=== PATIENT | male | born 1990 | race Hispanic/Latino ===

== ENCOUNTER 2020-03-26 04:07 | Emergency (ER) | payer OTHER ==
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
[2020-03-26 05:20] VITALS: BP 164/101; TEMP 98.5; O2SAT 99
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
== END 2020-03-26 05:13 | disposition home or self-care (01) ==
LOC: ER 04:07
DX: Z77.098 Contact with and (suspected) exposure to other hazardous, chiefly nonmedicinal, chemicals (principal)
CPT/HCPCS: 99283

== ENCOUNTER 2020-09-25 00:27 | Observation (INO) | payer OTHER ==
[2020-09-25 01:36] LABS: Absolute Lymphocytes (CBC) 1.5 K/uL (0.7-4.9); Basophils % 0.4 % (0-1.3); Lymphocytes % 19.5 % (15.3-44.8); MPV 9.1 fL (7.6-11.3)
[2020-09-25 01:47] LABS: BUN Blood Urea Nitrogen 9 mg/dL (7-18); Bicarbonate 24 mmol/L (21-32); Glucose Level 97 mg/dL (74-106); NT PRO-BNP 7 pg/mL (<125); Potassium 3.7 mmol/L (3.5-5.1); Sodium Level 141 mmol/L (136-145); Troponin (Emerg Dept Use Only) 0.09 ng/mL (0.0-0.045)
[2020-09-25] MEDS ORDERED: ASPIRIN 81 MG CHEWABLE TABLET ONE (04:30)
--- NOTE | 2020-09-25 04:57 | EDPHYS ---
Physician Documentation [facility] Name: Mikey Biswas Age: 30 yrs Sex: Male : 1990 Arrival Date: 09/25/2020 Time: 00:51 Bed 16 Private MD: ED Physician Jeovany Paz HPI: 09/25 00:54 This 30 yrs old Male presents to ER via Unassigned with complaints of rn dizziness, sob. 00:54 The patient has shortness of breath at rest. Onset: The symptoms/episode began/occurred rn just prior to arrival. Duration: The symptoms are continuous, but are markedly better than the original presentation. The patient's shortness of breath is aggravated by nothing, is alleviated by application of supplemental oxygen. Associated signs and symptoms: Pertinent positives: dizziness, tingling of hands and face, Pertinent negatives: non-productive cough, productive cough, fever, hemoptysis, loss of consciousness. Severity of symptoms: At their worst the symptoms were mild in the emergency department the symptoms have resolved. The patient has not experienced similar symptoms in the past. Reports at work, was feeling a little stressed, began to feel lightheaded, sob, tingling of hands and face, mild chest pressure, resolved after given supplemental oxygen. No famhx of early cardiac problems. Has never happened to him before. Currently asymptomatic. Went to work feeling fine.. Historical: - Allergies: 00:57 No Known Allergies; jb4 - Home Meds: 00:57 None [Active]; jb4 - PMHx: 00:57 None; jb4 - PSHx: 00:57 None; jb4 - Immunization history:: Adult Immunizations up to date. - Social history:: Smoking status: Patient denies any tobacco usage or history of. Patient uses alcohol, occasionally. Patient/guardian denies using street drugs. - Family history:: not pertinent. - Hospitalizations: : No recent hospitalization is reported. ROS: 00:54 Constitutional: Negative for fever, chills, and weight loss, Eyes: Negative for injury, rn pain, redness, and discharge, Neck: Negative for injury, pain, and swelling, Cardiovascular: Negative for edema Respiratory: Negative for cough, wheezing, and pleuritic chest pain, Abdomen/GI: Negative for abdominal pain, nausea, vomiting, diarrhea, and constipation, Back: Negative for injury and pain, MS/Extremity: Negative for injury and deformity, Skin: Negative for injury, rash, and discoloration, Neuro: Negative for headache, weakness, and seizure. Exam: 00:54 Constitutional: This is a well developed, well nourished patient who is awake, alert, rn and in no acute distress. Head/Face: Normocephalic, atraumatic. Eyes: Pupils equal round and reactive to light, extra-ocular motions intact. Lids and lashes normal. Conjunctiva and sclera are non-icteric and not injected. Cornea within normal limits. Periorbital areas with no swelling, redness, or edema. Cardiovascular: Regular rate and rhythm. No pulse deficits. Respiratory: No increased work of breathing, no retractions or nasal flaring. Clear bilateral breath sounds. Abdomen/GI: Soft, non-tender Skin: Warm, dry with normal turgor. Normal color with no rashes, no lesions, and no evidence of cellulitis. MS/ Extremity: Pulses equal, no cyanosis. Neurovascular intact. Full, normal range of motion. Equal circumference. Neuro: Awake and alert, GCS 15, oriented to person, place, time, and situation. Cranial nerves II-XII grossly intact. Motor strength 5/5 in all extremities. Sensory grossly intact. Cerebellar exam normal. Vital Signs: 00:54 BP 133 / 74; Pulse 97; Resp 18; Temp 98.8(O); Pulse Ox 96% on R/A; Weight 154.22 kg jb4 (R); Height 5 ft. 8 in. (172.72 cm) (R); Pain 0/10; 03:00 BP 161 / 99; Pulse 84; Resp 16; Pulse Ox 100% on R/A; jm8 05:14 BP 126 / 83; Pulse 89; Resp 16; Pulse Ox 99% ; jm8 00:54 Body Mass Index 51.70 (154.22 kg, 172.72 cm) jb4 MDM: 00:51 Patient medically screened. rn 04:54 Differential diagnosis: Anxiety Reaction Myocardial Infarction Pulmonary Embolism. rn Differential diagnosis: Unstable Angina. Data reviewed: vital signs, nurses notes, lab test result(s), EKG, radiologic studies, CT scan, and as a result, I will admit patient. Counseling: I had a detailed discussion with the patient and/or guardian regarding: the historical points, exam findings, and any diagnostic results supporting the discharge/admit diagnosis, lab results, radiology results, the need for further work-up and treatment in the hospital. Response to treatment: the patient's symptoms have markedly improved after treatment, the patient is now symptom free, and as a result, I will admit patient. Admission orders: after a detailed discussion of the patient's condition and case, the admit orders are written by me. ED course: Pt improved, back to baseline, + elevated troponin and rightward axis ECG, CT PE neg, states intermittent episodes of chest pain in last few weeks, will admit given elevated troponin, chest pain, and near syncope with dyspnea today while at rest.. 09/25 00:51 Order name: Basic Metabolic Panel 09/25 00:51 Order name: CBC with Diff 09/25 00:51 Order name: NT PRO-BNP 09/25 00:51 Order name: Troponin (emerg Dept Use Only) 09/25 00:52 Order name: Basic Metabolic Panel; Complete Time: 03:00 [facility] 09/25 00:52 Order name: CBC with Automated Diff; Complete Time: 03:00 [facility] 09/25 00:52 Order name: NT PRO-BNP; Complete Time: 03:00 [facility] 09/25 00:52 Order name: Troponin (Emerg Dept Use Only); Complete Time: 03:00 [facility] 09/25 07:57 Order name: Troponin I [facility] 09/25 07:57 Order name: Lipid Profile [facility] 09/25 07:57 Order name: T4 Free [facility] 09/25 07:57 Order name: Thyroid Stimulating Hormone [facility] 09/25 08:42 Order name: Hemoglobin A1c [facility] 09/25 12:34 Order name: Urinalysis [facility] 09/25 00:51 Order name: XRAY Chest (1 view) rn 09/25 00:51 Order name: EKG; Complete Time: 00:52 rn 09/25 00:51 Order name: Cardiac monitoring; Complete Time: 01:19 rn 09/25 00:51 Order name: EKG - Nurse/Tech; Complete Time: 01:19 rn 09/25 00:51 Order name: IV Saline Lock; Complete Time: : rn 09/25 00:51 Order name: Labs collected and sent; Complete Time: : rn 09/25 00:51 Order name: O2 Per Protocol; Complete Time: : rn 09/25 00:51 Order name: O2 Sat Monitoring; Complete Time: : rn 09/25 03:01 Order name: CT Chest For PE Angio rn 09/25 04:50 Order name: CONS Physician Consult EDAL 09/25 12:38 Order name: Urine Drug Screen [facility]AL 09/25 12:47 Order name: Troponin I EDAL Administered Medications: 04:27 Drug: Aspirin Chewable Tablet 324 mg Route: PO; jm8 05:21 Follow up: Response: No adverse reaction jm8 Disposition: 09/25/20 04:57 Hospitalization ordered by Kelli Aguilar for Observation. Preliminary diagnosis are Chest pain, unspecified, Elevated troponin, Near syncope. - Bed requested for [facility] ER HOLD. - Status is Observation. ap3 - Condition is Stable. - Problem is new. - Symptoms have improved. Signatures: Dispatcher [employer] EDAL Jeovany Paz MD MD rn Calderon, Audri RN RN aa5 Ziggy Lehman RN RN jb4 Regina Kowalski RN RN ap3 Eder Huynh RN RN jm8 Corrections: (The following items were deleted from the chart) 07:51 04:57 Hospitalization Ordered by Kelli Aguilar MD for Observation. Preliminary aa5 diagnosis is Chest pain, unspecified; Elevated troponin; Near syncope. Bed requested for Telemetry/MedSurg (observation). Status is Observation. Condition is Stable. Problem is new. Symptoms have improved. rn 13:54 07:51 09/25/2020 04:57 Hospitalization Ordered by Kelli Aguilar MD for Observation. ap3 Preliminary diagnosis is Chest pain, unspecified; Elevated troponin; Near syncope. Bed requested for [facility] ER HOLD. Status is Observation. Condition is Stable. Problem is new. Symptoms have improved. aa5
--- NOTE | 2020-09-25 04:57 | ER ---
Nurse's Notes [facility] Name: Mikey Biswas Age: 30 yrs Sex: Male : 1990 Arrival Date: 09/25/2020 Time: 00:51 Bed 16 Private MD: Diagnosis: Chest pain, unspecified;Elevated troponin;Near syncope Presentation: 09/25 00:54 Chief complaint: EMS states: He was sitting at his desk at work and suddenly started to jb4 feel dizzy and began having chest pressure. He was initially tachycardic when we arrive with a B/p of 175/101. His BGL was 89. We initiate a 20g in the left hand, gave 324 of ASA, and put him on 2L NC. Coronavirus screen: Client denies travel out of the [place] in the last 14 days. At this time, the client does not indicate any symptoms associated with coronavirus-19. Ebola Screen: No symptoms or risks identified at this time. Initial Sepsis Screen: Does the patient meet any 2 criteria? HR > 90 bpm. Yes Does the patient have a suspected source of infection? No. Patient's initial sepsis screen is negative. Risk Assessment: Do you want to hurt yourself or someone else? Patient reports no desire to harm self or others. Onset of symptoms was September 25, 2020. Transition of care: patient was not received from another setting of care. 00:54 Method Of Arrival: EMS: [facility] jb4 00:54 Acuity: AARTI 3 jb4 Triage Assessment: 00:57 General: Appears in no apparent distress. comfortable, Behavior is calm, cooperative, jb4 appropriate for age. Pain: Denies pain. Historical: - Allergies: 00:57 No Known Allergies; jb4 - Home Meds: 00:57 None [Active]; jb4 - PMHx: 00:57 None; jb4 - PSHx: 00:57 None; jb4 - Immunization history:: Adult Immunizations up to date. - Social history:: Smoking status: Patient denies any tobacco usage or history of. Patient uses alcohol, occasionally. Patient/guardian denies using street drugs. - Family history:: not pertinent. - Hospitalizations: : No recent hospitalization is reported. Screenin:22 Abuse screen: Denies threats or abuse. Denies injuries from another. Nutritional jm8 screening: No deficits noted. Tuberculosis screening: No symptoms or risk factors identified. Fall Risk None identified. Assessment: 01:20 General: Appears in no apparent distress. comfortable, Behavior is calm, cooperative, jm8 appropriate for age. 01:21 Pain: Denies pain. Neuro: No deficits noted. Cardiovascular: Reports chest pain, jm8 lightheadedness, palpitations. Respiratory: No deficits noted. Respiratory: Airway is patent Trachea midline Respiratory effort is even, unlabored. GI: No deficits noted. : No deficits noted. EENT: No deficits noted. Derm: No deficits noted. Musculoskeletal: No deficits noted. 03:00 Reassessment: Patient appears in no apparent distress at this time. Patient and/or jm8 family updated on plan of care and expected duration. Pain level reassessed. Patient is alert, oriented x 3, equal unlabored respirations, skin warm/dry/pink. 05:00 Reassessment: Patient appears in no apparent distress at this time. No changes from jm8 previously documented assessment. Patient and/or family updated on plan of care and expected duration. Pain level reassessed. Patient is alert, oriented x 3, equal unlabored respirations, skin warm/dry/pink. Vital Signs: 00:54 BP 133 / 74; Pulse 97; Resp 18; Temp 98.8(O); Pulse Ox 96% on R/A; Weight 154.22 kg jb4 (R); Height 5 ft. 8 in. (172.72 cm) (R); Pain 0/10; 03:00 BP 161 / 99; Pulse 84; Resp 16; Pulse Ox 100% on R/A; jm8 05:14 BP 126 / 83; Pulse 89; Resp 16; Pulse Ox 99% ; jm8 00:54 Body Mass Index 51.70 (154.22 kg, 172.72 cm) jb4 ED Course: 00:51 Patient arrived in ED. rn 00:51 Jeovany Paz MD is Attending Physician. rn 00:56 Triage completed. jb4 00:57 Arm band placed on right wrist. jb4 01:22 No provider procedures requiring assistance completed. Maintain EMS IV. Dressing jm8 intact. Good blood return noted. Site clean \T\ dry. Gauge \T\ site: 20 g left hand. 01:23 Patient has correct armband on for positive identification. Bed in low position. Call jm8 light in reach. Side rails up X2. Adult w/ patient. 02:08 XRAY Chest (1 view) In Process Unspecified. EDMS 03:56 CT Chest For PE Angio In Process Unspecified. EDMS 04:56 Kelli Aguilar MD is Hospitalizing Provider. rn 07:29 Zena Sheikh, RN is Primary Nurse. ld1 13:52 IV discontinued, intact. ap3 Administered Medications: 04:27 Drug: Aspirin Chewable Tablet 324 mg Route: PO; 8 05:21 Follow up: Response: No adverse reaction jm8 Outcome: 04:57 Decision to Hospitalize by Provider. rn 13:52 Discharged to home ap3 13:52 Condition: stable 13:52 Discharge instructions given to patient, family. 13:54 Patient left the ED. ap3 Signatures: Dispatcher [employer] EDMS Jeovany Paz MD MD rn Bryson, James RN RN Regina Lopez RN RN ap3 Zena Sheikh, RN RN ld1 Eder Huynh, RN RN jm8 Corrections: (The following items were deleted from the chart) 05:19 05:18 BP 161 / 99; Pulse 84bpm; Resp 16bpm; Pulse Ox 100% RA; jm8 jm8
--- NOTE | 2020-09-25 05:03 | P.HP ---
Certification for Inpatient Patient admitted to: Observation With expected LOS: <2 Midnights Patient will require the following post-hospital care: None Practitioner: I am a practitioner with admitting privileges, knowledge of patient current condition, hospital course, and medical plan of care. Services: Services provided to patient in accordance with Admission requirements found in Title 42 Section 412.3 of the Code of Federal Regulations Patient History Date of Service: 09/25/20 Primary Care Provider: none Reason for admission: chest pain History of Present Illness: Mr. Biswas is a 30 yo male here today with an episode of intermittent sternal chest pressure while he was sitting at his desk at work. Reports dizziness, li ghtheadedness, chills, SOB, palpitations. He says he felt like he struggled to talk and felt confused. He felt numbness in his face and in his left fingers. He felt like he was going to pass out. The chest pressure started 30 minutes after his other symptoms. In the past he has had short sharp pains in his chest, but this is the first time he has felt like this. Symptoms usually relieved with hunching over or taking deep breaths. His dad has a history of [place]. He drinks a 6pack of beer 2-3x a week. Troponin 0.09. RAD on EKG. CTPE wnl. - Past Medical/Surgical History Has patient received pneumonia vaccine in the past: No Diabetic: No Past Medical History: Patient denies medical history Past Surgical History: Patient denies surgical history - Family History Father -: Heart disease Mother -: Diabetes - Social History Smoking Status: Never smoker Alcohol use: Yes CD- Drugs: No Caffeine use: No Place of Residence: Home Review of Systems General: Chills, Sweats, Malaise, As per HPI Eyes: Unremarkable ENT: Unremarkable Respiratory: Shortness of Breath, As per HPI Cardiovascular: Chest Pain, Palpitations, Light Headedness, As per HPI Gastrointestinal: Nausea, As per HPI Genitourinary: Unremarkable Musculoskeletal: Unremarkable Integumentary: Unremarkable Neurological: Numbness, Confusion, As per HPI Lymphatics: Unremarkable Physical Examination - Physical Exam General: Alert, In no apparent distress, Oriented x3, Cooperative HEENT: Atraumatic, Normocephalic, PERRLA, Mucous membr. moist/pink, EOMI, Sclerae nonicteric Neck: Supple, 2+ carotid pulse no bruit, JVD not distended, No Thyromegaly, No LAD Respiratory: Clear to auscultation bilaterally, Normal air movement Cardiovascular: No edema, Normal pulses, Regular rate/rhythm, Normal S1 S2, No gallops, No rubs, No murmurs Capillary refill: <2 Seconds Gastrointestinal: Normal bowel sounds, Soft and benign, Non-distended, No ascites, No tenderness, No masses, No rebound, No guarding Musculoskeletal: No clubbing, No swelling, No contractures, No erythema, No tenderness, No warmth Integumentary: No rashes, No breakdown, No significant lesion, No tenderness/swelling, No erythema, No warmth, No cyanosis Neurological: Normal gait, Normal speech, Normal strength at 5/5 x4 extr, Normal tone, Sensation intact, Cranial nerves 3-12 intact, Normal affect Lymphatics: No axilla or inguinal lymphadenopathy - Studies Laboratory Data (last 24 hrs) 09/25/20 01:11: WBC 7.60, Hgb 14.1, Hct 42.0, Plt Count 235 09/25/20 01:11: Sodium 141, Potassium 3.7, BUN 9, Creatinine 0.77, Glucose 97 Assessment and Plan - Problems (Diagnosis) (1) Hypertension Current Visit: Yes Status: Acute Qualifiers: Hypertension type: essential hypertension Qualified Code(s): I10 - Essential (primary) hypertension (2) Elevated troponin Current Visit: Yes Status: Acute (3) Abnormal EKG Current Visit: Yes Status: Acute (4) Chest pain Current Visit: Yes Status: Acute Qualifiers: Chest pain type: unspecified Qualified Code(s): R07.9 - Chest pain, unspecified - Plan cardiology consulted trend troponins and EKG ASA, BB, statin continue to monitor BP lipid panel, TSH/T4, A1c pending PRN morphine and NTG, DVT ppx UDS pending Dietitian consulted Discharge Plan: Home Plan to discharge in: 24 Hours - Advance Directives Does patient have a Living Will: No Does patient have a Durable POA for Healthcare: No - Code Status/Comfort Care Code Status Assessed: Yes (full code ) Critical Care: No Time Spent Managing Pts Care (In Minutes): 70
[2020-09-25] MEDS ORDERED: ACETAMINOPHEN 500 MG TAB PO PRN (06:02)
[2020-09-25] MEDS ORDERED: METOPROLOL TAR 25 MG TAB PO SCH (06:02)
[2020-09-25] MEDS ORDERED: ONDANSETRON 4 MG/2 ML VIAL IV PRN (06:02)
[2020-09-25] MEDS ORDERED: MORPHINE 2 MG/ML SYR IV PRN (06:02)
[2020-09-25] MEDS ORDERED: NITROGLYCERIN 0.4 MG/TAB SL PRN (06:02)
[2020-09-25] MEDS ORDERED: METOPROLOL TAR 25 MG TAB ONE (06:28)
[2020-09-25 06:36] VITALS: BMI 51.6
--- NOTE | 2020-09-25 07:19 | RAD REPORT ---
EXAM DESCRIPTION: Harpal Single View09/25/2020 2:08 am CLINICAL HISTORY: Shortness of breath COMPARISON: none FINDINGS: The lungs appear clear of acute infiltrate. The heart is borderline enlarged IMPRESSION: No acute abnormalities displayed
[2020-09-25 07:57] LABS: Thyroid Stimulating Hormone 2.1 uIU/mL (0.360-3.740); Troponin I 0.09 ng/mL (0.0-0.045)
[2020-09-25] MEDS ORDERED: ASPIRIN EC 81 MG TAB PO SCH (09:00)
[2020-09-25 09:14] VITALS: TEMP 98.2
[2020-09-25] MEDS ORDERED: ASPIRIN EC 81 MG TAB PO ONE (09:36)
[2020-09-25] MEDS ORDERED: ENOXAPARIN 40 MG/0.4 ML SQ ONE (09:36)
[2020-09-25 10:33] VITALS: O2SAT 98
--- NOTE | 2020-09-25 11:16 | RAD REPORT ---
EXAM DESCRIPTION: CT - Chest For Pe Angio - 09/25/2020 6:55 am CLINICAL HISTORY: The patient is 30 years old and is Male; Chest pain;Dyspnea TECHNIQUE: Axial computed tomographic angiography images of the chest with intravenous contrast. S agittal and coronal reformatted images were created and reviewed. This CT exam was performed using one or more of the following dose reduction techniques: automated exposure control, adjustment of t he mA and/or kV according to patient size, and/or use of iterative reconstruction technique. MIP re constructed images were created and reviewed. COMPARISON: No relevant prior studies available. FINDINGS: Limitations: Contrast bolus suboptimal for detection of pulmonary embolism. Pulmonary arteries: See above. Aorta: No acute findings. No thoracic aortic aneurysm. Lungs: Unremarkable. No mass. No consolidation. Pleural space: Unremarkable. No significant effusion. No pneumothorax. Heart: Unremarkable. No cardiomegaly. No significant pericardial effusion. No evidence of RV dysfunction. Bones/joints: No acute fracture. No dislocation. Soft tissues: Unremarkable. Lymph nodes: Unremarkable. No enlarged lymph nodes. Liver: There is diffuse fatty infiltration of the liver. IMPRESSION: No evidence of pulmonary embolism. No acute findings in the visualized arteries of the c hest. Electronically signed by: Chuy Huizar MD 09/25/2020 4:40 AM CDT Due to temporary technical issues with the PACS/Fluency reporting system, reports are being signed by the in house radiologist without review as a courtesy to ensure prompt reporting. The interpreting r adiologist is fully responsible for the content of the report.
[2020-09-25 12:32] LABS: Urine Appearance CLEAR (Clear); Urine Bilirubin NEGATIVE (Negative); Urine Blood NEGATIVE (Negative); Urine Color YELLOW (Yellow); Urine Glucose NEGATIVE (Negative); Urine Protein NEGATIVE (Negative); Urine Specific Gravity >=1.030 (1.005-1.030); Urine Urobilinogen 0.2 mg/dL (0.2-1.0); Urine pH 5.5 (5.0-7.0)
[2020-09-25 12:34] LABS: Urine Microscopic Reflex NO UMIC
[2020-09-25 12:37] LABS: Barbiturates NEGATIVE (NEGATIVE); Benzodiazepines NEGATIVE (NEGATIVE); Cocaine NEGATIVE (NEGATIVE); METHAMPHETAM NEGATIVE (NEGATIVE); Methadone NEGATIVE (NEGATIVE); Opiates NEGATIVE (NEGATIVE); Phencyclidine NEGATIVE (NEGATIVE); THC Cannibis NEGATIVE (NEGATIVE)
[2020-09-25 12:42] VITALS: BP 146/92
[2020-09-25] MEDS ORDERED: ENOXAPARIN 40 MG/0.4 ML SQ SCH (21:00)
[2020-09-25] MEDS ORDERED: ATORVASTATIN 20 MG TAB PO SCH (21:00)
--- NOTE | 2020-09-26 07:21 | EKG ---
Test Date: 2020-09-25 Test Time: 01:13:34 Systems Programmer Analyst: GLORIA MEASUREMENT RESULTS: Intervals: Rate: 92 GA: 138 QRSD: 88 QT: 334 QTc: 413 [place]: P: 31 GA: 138 QRS: 98 T: -10 INTERPRETIVE STATEMENTS: Normal sinus rhythm Rightward axis Cannot rule out Inferior infarct, age undetermined Abnormal ECG No previous ECG available for comparison Electronically Signed On 09-26-20 07:18:17 CDT by Milan Pablo
--- NOTE | 2020-09-26 07:21 | EKG ---
Test Date: 2020-09-25 Test Time: 01:14:36 Electric Transfer Operator: GLORIA MEASUREMENT RESULTS: Intervals: Rate: 89 NE: 134 QRSD: 82 QT: 332 QTc: 403 [place]: P: 32 NE: 134 QRS: 98 T: -7 INTERPRETIVE STATEMENTS: Normal sinus rhythm Rightward axis Abnormal QRS-T angle, consider primary T wave abnormality Abnormal ECG Compared to ECG 09/25/2020 01:13:34 T-wave abnormality now present Myocardial infarct finding no longer present Electronically Signed On 09-26-20 07:18:15 CDT by Milan Pablo
--- NOTE | 2020-09-28 20:07 | CON ---
Date of Consultation: 09/25/2020 Reason For Consultation: Atypical chest pain and dizziness. History Of Present Illness: Mr. Biswas is a 30-year-old with no past medical history, does not take a ny medicine, does not have any allergies, came in with shortness of breath that developed at rest. I t was not related to exertion. He has been dizzy and has some tingling in the face as well as the coker nd. He states that this may be related to stress. He does not have any family history of heart dise ase or cardiac risk factors except for his weight. Denied PND, orthopnea, pedal edema, palpitations, syncope, fever, or chills. Past Medical History: Negative. Allergies: NONE. Medications: None. Review of Systems: Negative. Social History: Negative. Family History: Negative. Physical Examination: Vital signs: Stable. Afebrile. HEENT: Negative. Neck: Supple. No bruit. Chest: Clear to auscultation and percussion. Cardiac: Revealed a regular rhythm and rate. No murmurs, gallops, or rubs. Abdomen: Benign. Extremities: Reveal no clubbing, cyanosis, or edema. Diagnostic Data: His EKG was normal. Chest x-ray was normal. Cholesterol was 264, LDL was 204, HDL was 35. Troponin is 0.095. Impression And Plan: 1.Elevated troponin in a patient with atypical chest pain, dizziness, and shortness of breath. No c linical significance. This is not acute coronary syndrome. 2.Obesity. 3.Dyslipidemia. 4.Mild hypertension. I think Mr. Biswas should be on antihypertensive medicine, statin, baby aspirin , and go home. I will make arrangements for him to have an outpatient stress test and an echocardiog yohana in future. CARLA/CARMEN Voice ID: [id number] Report ID: [id number]
--- NOTE | 2020-09-30 20:12 | P.DS ---
Discharge Date: 09/25/20 Primary Care Provider: none Disposition: ROUTINE DISCHARGE Discharge Condition: GOOD Reason for Admission: chest pain Brief History of Present Illness: Mr. Biswas is a 30 yo male here today with an episode of intermittent sternal chest pressure while he was sitting at his desk at work. Reports dizziness, lightheadedness, chills, SOB, palpitations. He says he felt like he struggled to talk and felt confused. He felt numbness in his face and in his left fingers. He felt like he was going to pass out. The chest pressure started 30 minutes after his other symptoms. In the past he has had short sharp pains in his chest, but this is the first time he has felt like this. Symptoms usually relieved with hunching over or taking deep breaths. His dad has a history of [place]. He drinks a 6pack of beer 2-3x a week. Troponin 0.09. RAD on EKG. CTPE wnl. Hospital Course: Patient was evaluated by cardiology. Patient is stable for discharge. Patient had slightly elevated troponin and will need further testing as an outpatient. Continue with antiplatelet therapy and statin therapy and blood pressure control. Vital Signs/Physical Exam: Temp Pulse Resp BP Pulse Ox 98.2 F 74 16 146/92 H 99 09/25/20 08:00 09/25/20 12:00 09/25/20 12:00 09/25/20 12:00 09/25/20 12:00 General: Alert, In no apparent distress, Oriented x3 Laboratory Data at Discharge: WBC 7.60 K/uL (4.3-10.9) 09/25/20 01:11 Hgb 14.1 g/dL (13.6-17.9) 09/25/20 01:11 Hct 42.0 % (39.6-49.0) 09/25/20 01:11 Plt Count 235 K/uL (152-406) 09/25/20 01:11 Sodium 141 mmol/L (136-145) 09/25/20 01:11 Potassium 3.7 mmol/L (3.5-5.1) 09/25/20 01:11 BUN 9 mg/dL (7-18) 09/25/20 01:11 Creatinine 0.77 mg/dL (0.55-1.3) 09/25/20 01:11 Glucose 97 mg/dL (74-106) 09/25/20 01:11 Troponin I 0.08 ng/mL (0.0-0.045) H 09/25/20 12:15 Triglycerides 125 mg/dL (<150) 09/25/20 07:16 Cholesterol 264 mg/dL (<200) H 09/25/20 07:16 HDL Cholesterol 35 mg/dL (40-60) L 09/25/20 07:16 Cholesterol/HDL Ratio 7.54 09/25/20 07:16 Physician Discharge Instructions: OK TO DC IV AND DC HOME FOLLOW-UP WITH PCP IN 1-2 WEEKS RETURN TO THE ER IF SYMPTOMS WORSENS FOLLOW-UP WITH CARDIOLOGY IN 1-2 WEEKS FOR POSSIBLE STRESS TESTING CALL DR. REEVES AT [phone] IF ANY QUESTIONS REGARDING HOSPITAL STAY Diet: AHA Activity: Fall precautions Followup: NONE,NONE [Primary Care Provider] - Time spent managing pt's care (in minutes): 35
== END 2020-09-25 13:50 | disposition home or self-care (01) ==
LOC: ER 00:27 → ERHOLD 04:49
PROVIDERS: ADMIT Hospitalist; ATTEND Hospitalist
DX: R07.9 Chest pain, unspecified (principal); R94.31 Abnormal electrocardiogram [ECG] [EKG]; I10 Essential (primary) hypertension; R77.8 Other specified abnormalities of plasma proteins
CPT/HCPCS: 36415; 71045; 71275; 80048; 80061; 80307; 81003; 83036; 83880; 84439; 84443; 84484; 85025; 93005; 94760; 99283; G0378; J1650; Q9967

== ENCOUNTER 2023-04-26 06:51 | Inpatient (IN) | payer OTHER ==
[2023-04-26 08:06] LABS: Absolute Lymphocytes (CBC) 2.2 K/uL (0.7-4.9); Hematocrit 43.1 % (39.6-49.0); Lymphocytes % 31.1 % (15.3-44.8); MPV 7.6 fL (7.6-11.3); Platelets 262 thou/uL (152-406); RBC Red Blood Cell Count 5.08 M/uL (4.33-5.43)
--- NOTE | 2023-04-26 08:21 | RAD REPORT ---
EXAM DESCRIPTION: CT - Head Brain Wo Cont - 04/26/2023 8:05 am CLINICAL HISTORY: near syncope;Dizziness COMPARISON: No comparisons TECHNIQUE: All CT scans are performed using dose optimization technique as appropriate and may inclu de automated exposure control or mA/KV adjustment according to patient size. FINDINGS: No intracranial hemorrhage, hydrocephalus or extra-axial fluid collection.No areas of brai n edema or evidence of midline shift. Bilateral mucous retention cyst. The calvarium is intact. IMPRESSION: No acute intracranial abnormality.
--- NOTE | 2023-04-26 08:23 | RAD REPORT ---
EXAM DESCRIPTION: RAD - Chest Single View - 04/26/2023 7:52 am CLINICAL HISTORY: PALPITATIONS COMPARISON: Chest Single View dated 09/25/2020 FINDINGS: Lines: None. Lungs: Vascular congestion. No raudel alveolar edema. Pleural: No significant pleural effusions or pneumothorax. Cardiac: Borderline enlargement of the cardiac silhouette. Mediastinum: Within normal limits. Bones: No acute fractures. Other: None IMPRESSION: Pulmonary vascular congestion.
[2023-04-26 08:26] LABS: ALT/SGPT 51 U/L (16-61); AST/SGOT 25 U/L (15-37); Albumin 3.6 g/dL (3.4-5.0); Alkaline Phosphatase 103 U/L (45-117); BUN Blood Urea Nitrogen 12 mg/dL (7-18); Bicarbonate 26 mEq/L (21-32); Bilirubin Total 0.3 mg/dL (0.2-1.0); Glomerular Filtration Rate 108 ml/min (=/>90); Glucose Level 95 mg/dL (74-106); NT PRO-BNP 47 pg/mL (<125); Potassium 3.8 mEq/L (3.5-5.1); Protein, Total 7.7 g/dL (6.4-8.2); Sodium Level 137 mEq/L (136-145)
[2023-04-26 08:33] LABS: Bilirubin Direct < 0.1 mg/dL (0-0.2); Bilirubin Indirect, Calculated ND mg/dL (0.2-0.8)
[2023-04-26 08:34] LABS: Troponin High Sensitivity 126.7 pg/mL (<58.9)
--- NOTE | 2023-04-26 09:24 | RAD REPORT ---
EXAM DESCRIPTION: CT - Chest For Pe Angio - 04/26/2023 9:15 am CLINICAL HISTORY: elevated trop, near syncope COMPARISON: Chest For Pe Angio dated 09/25/2020 TECHNIQUE: Dynamically enhanced axial 3 mm thick images of the chest were obtained during administra tion of <100> mL Isovue 370 IV contrast. Coronal and oblique reconstruction images were generated and reviewed. Exam utilizes a protocol for optimal evaluation of pulmonary arterial tree. Maximum intensity projections 3D imaging was utilized All CT scans are performed using dose optimization technique as appropriate and may include automated exposure control or mA/KV adjustment according to patient size. FINDINGS: Chest Wall: No suspicious thyroid nodules or pathologic lymphadenopathy. Lungs: Low lung volumes with mosaic lung attenuation. Pleura: No significant effusions or pneumothorax. Mediastinum/hiwot: No pathologic lymphadenopathy. Pulmonary arteries/Aorta: No filling defect identified. No aortic aneurysm. Limited evaluation of the subsegmental pulmonary arteries due to motion. Heart: No significant pericardial effusion. Normal heart size. Upper abdomen: No acute abnormality.Hepatic steatosis Bones: No acute abnormality. IMPRESSION: No clinically significant pulmonary embolism. Low lung volumes with mosaic lung attenuat ion that may reflect hypoventilation versus small airways disease.
--- NOTE | 2023-04-26 09:26 | RAD REPORT ---
EXAM DESCRIPTION: CTAbdomen Pelvis W Contrast - 04/26/2023 9:16 am CLINICAL HISTORY: FLANK PAIN COMPARISON: No comparisons TECHNIQUE: CT of the abdomen and pelvis was performed. All CT scans are performed using dose optimization technique as appropriate and may include automated exposure control or mA/KV adjustment according to patient size. FINDINGS: Lower chest: No acute abnormality. Liver: Hepatic steatosis Biliary: No biliary ductal dilatation. Stomach: No significant focal abnormality. Duodenum: No significant focal abnormality. Pancreas: No significant abnormality. Spleen: No significant abnormality. Adrenal: No suspicious lesions. Kidney/ureter: No hydronephrosis. No renal calculi. Retroperitoneum: No retroperitoneal adenopathy. Vascular: No aneurysm. Bowel: No significant focal abnormality. Peritoneum: No ascites or free air. Tiny fat containing umbilical hernia. Bladder: Grossly unremarkable. Reproductive: No adnexal masses. Bones: No acute fracture. Mild disc height loss at L5-S1. Other: n/a IMPRESSION: No acute intra-abdominal or pelvic finding.
--- NOTE | 2023-04-26 09:55 | ER ---
Nurse's Notes [facility] Name: Mikey Biswas Age: 33 yrs Sex: Male : 1990 Arrival Date: 04/26/2023 Time: 06:51 Bed 14 Private MD: Diagnosis: Dizziness and giddiness;Essential (primary) hypertension;Elevated troponin Presentation: 04/26 07:29 Chief complaint: Started feeling anxious then dizzy while driving to work, both arms hb became weak and he felt like he was going to pass out. Has been under a lot of stress and has history of anxiety. VAN NEGATIVE. Coronavirus screen: At this time, the client does not indicate any symptoms associated with coronavirus-19. Ebola Screen: No symptoms or risks identified at this time. Initial Sepsis Screen: Does the patient meet any 2 criteria? No. Patient's initial sepsis screen is negative. Does the patient have a suspected source of infection? No. Patient's initial sepsis screen is negative. Risk Assessment: Do you want to hurt yourself or someone else? Patient reports no desire to harm self or others. Onset of symptoms was April 26, 2023. 07:29 Method Of Arrival: Wheelchair hb 07:29 Acuity: AARTI 3 hb Historical: - Allergies: 07:31 No Known Allergies; hb - Immunization history:: Adult Immunizations up to date. - Social history:: Smoking status: Patient denies any tobacco usage or history of. - Family history:: not pertinent. - Hospitalizations: : No recent hospitalization is reported. Screenin:07 [facility] ED Fall Risk Assessment (Adult) History of falling in the last 3 months, ld1 including since admission No falls in past 3 months (0 pts). Abuse screen: Denies threats or abuse. Denies injuries from another. Nutritional screening: No deficits noted. Tuberculosis screening: No symptoms or risk factors identified. Assessment: 08:07 General: Appears in no apparent distress. comfortable, Behavior is cooperative, ld1 anxious. Pain: Denies pain. Neuro: Level of Consciousness is awake, alert, obeys commands, Oriented to person, place, time, situation. Cardiovascular: Capillary refill < 3 seconds Patient's skin is warm and dry. Respiratory: Airway is patent Respiratory effort is even, unlabored. GI: Abdomen is round obese. : No signs and/or symptoms were reported regarding the genitourinary system. EENT: No signs and/or symptoms were reported regarding the EENT system. Derm: No signs and/or symptoms reported regarding the dermatologic system. Musculoskeletal: No signs and/or symptoms reported regarding the musculoskeletal system. 21:56 General: attempted to call report, nurse will call back . jw7 22:13 General: Report given to GLORIA Glez . jw7 Vital Signs: 07:29 BP 166 / 113; Pulse 83; Resp 16; Temp 98.1; Pulse Ox 100% on R/A; Weight 145.15 kg; hb Height 5 ft. 8 in. ; 09:27 BP 161 / 89; Pulse 71; Resp 18; Pulse Ox 100% on R/A; ld1 07:29 Body Mass Index 48.66 (145.15 kg, 172.72 cm) hb ED Course: 07:02 Patient arrived in ED. jj6 07:17 Jeovany Paz MD is Attending Physician. rn 07:31 Triage completed. hb 07:31 Arm band placed on. hb 07:35 Christine Crowder, RN is Primary Nurse. ko1 07:48 EKG done, by ED staff, reviewed by Jeovany Paz MD. em1 07:54 XRAY Chest (1 view) In Process Unspecified. EDMS 08:07 CT Head Brain wo Cont In Process Unspecified. EDMS 08:07 Patient has correct armband on for positive identification. Bed in low position. Call ld1 light in reach. Side rails up X2. shelter monitor on. Pulse ox on. NIBP on. Door closed. Noise minimized. Warm blanket given. 08:07 No provider procedures requiring assistance completed. ld1 09:17 CT Chest For PE Angio In Process Unspecified. EDMS 09:18 CT Abd/Pelvis - IV Contrast Only In Process Unspecified. EDMS 09:54 Eder Biggs is Hospitalizing Provider. rn 11:56 Moe Elder MD is Hospitalizing Provider. rn 15:59 Patient admitted, IV remains in place. ld1 20:58 Provided Education on: need for admit. jw7 Administered Medications: 08:52 Drug: Aspirin PO Chewable Tablet 324 mg PO once; 81 mg tablets x 4 Route: PO; ld1 20:52 Follow up: Response: No adverse reaction jw7 Medication: 15:59 VIS not applicable for this client. ld1 Outcome: 09:54 Decision to Hospitalize by Provider. rn 15:59 Admitted to ER Hold. Please see [facility] for further documentation. ld1 15:59 Condition: stable 15:59 Instructed on the need for admit, 22:36 Patient left the ED. jw7 Signatures: Dispatcher [employer] EDMS Jeovany Paz MD MD rn Martinez, Eric em1 Pauly Gregory RN GLORIA Zena Daniels RN RN ld1 Perri Manzanaresj6 Cookie Meeks RN RN jw7 Christine Crowder RN RN ko1
--- NOTE | 2023-04-26 09:55 | EDPHYS ---
Physician Documentation [facility] Name: Mikey Biswas Age: 33 yrs Sex: Male : 1990 Arrival Date: 04/26/2023 Time: 06:51 Bed 14 Private MD: ED Physician Jeovany Paz HPI: 04/26 08:12 This 33 yrs old Male presents to ER via Wheelchair with complaints of rn Dizziness. 08:12 The patient presents with dizziness, feeling faint, lightheadedness. Onset: The rn symptoms/episode began/occurred this morning. Modifying factors: The symptoms are alleviated by nothing, the symptoms are aggravated by nothing. Severity of symptoms: At their worst the symptoms were moderate in the emergency department the symptoms have improved. The patient has experienced a previous episode. The patient has not recently seen a physician. Patient reports driving to work this morning when felt dizzy, anxious, tingling all over, heaviness in both arms. Happened while he was driving. States under a lot of stress recently. Reports similar presentation 2 years ago and diagnosed with panic attack. Denies any medication changes. No focal pain. No chest pain. No shortness of breath. No intervention and patient feels much better, almost resolved.. Historical: - Allergies: 07:31 No Known Allergies; hb - Immunization history:: Adult Immunizations up to date. - Social history:: Smoking status: Patient denies any tobacco usage or history of. - Family history:: not pertinent. - Hospitalizations: : No recent hospitalization is reported. ROS: 08:12 Constitutional: Negative for fever, chills, and weight loss, Neck: Negative for injury, rn pain, and swelling, Cardiovascular: Negative for chest pain, palpitations, and edema, Respiratory: Negative for shortness of breath, cough, wheezing, and pleuritic chest pain, Abdomen/GI: Negative for abdominal pain, nausea, vomiting, diarrhea, and constipation, Back: Negative for injury : Negative for injury, bleeding, discharge, and swelling, MS/Extremity: Negative for injury and deformity, Skin: Negative for injury, rash, and discoloration, Neuro: Positive for dizziness and diffuse tingling and numbness Exam: 08:12 Constitutional: This is a well developed, well nourished patient who is awake, alert, rn and in no acute distress. Head/Face: Normocephalic, atraumatic. Eyes: Pupils equal round and reactive to light, extra-ocular motions intact. Neck: No Meningismus. Cardiovascular: Regular rate and rhythm. No pulse deficits. Respiratory: Speaking full sentences, unlabored. No increased work of breathing, no retractions or nasal flaring. Skin: Warm, dry MS/ Extremity: Pulses equal, no cyanosis. Neurovascular intact. Full, normal range of motion. Equal circumference. Neuro: Awake and alert, GCS 15, oriented to person, place, time, and situation. Cranial nerves II-XII grossly intact. Motor strength 5/5 in all extremities. Sensory grossly intact. Cerebellar exam normal. 08:43 ECG was reviewed by the Attending Physician. rn Vital Signs: 07:29 BP 166 / 113; Pulse 83; Resp 16; Temp 98.1; Pulse Ox 100% on R/A; Weight 145.15 kg; hb Height 5 ft. 8 in. ; 09:27 BP 161 / 89; Pulse 71; Resp 18; Pulse Ox 100% on R/A; ld1 07:29 Body Mass Index 48.66 (145.15 kg, 172.72 cm) hb MDM: 07:18 Patient medically screened. rn 09:49 Differential diagnosis: cardiac arrhythmia, generalized weakness, hypovolemia, rn idiopathic dizziness, vertigo, malignant HTN, arrhythmia . Data reviewed: vital signs, nurses notes, lab test result(s), EKG, radiologic studies, CT scan, plain films, and as a result, I will admit patient. Consideration of Admission/Observation Patient was admitted/placed on observation. Escalation of care including admission/observation considered. Independent interpretation of the following test(s) in the Emergency Department EKG: See my EKG interpretation above X-Ray: My interpretation is Chest x-ray images negative for pneumothorax or pneumonia. Counseling: I had a detailed discussion with the patient and/or guardian regarding the historical points, exam findings, and any diagnostic results supporting the discharge/admit diagnosis, lab results, radiology results, the need for further work-up and treatment in the hospital. Response to treatment: the patient's symptoms have markedly improved after treatment, and as a result, I will admit patient. ED course: Blood pressure markedly improved since arrival without intervention. Mild elevation in troponin. Last visit had elevated troponin with unclear etiology as well. CT PE negative for acute findings. Will admit to hospitalist service for further care.. 04/26 07:34 Order name: Basic Metabolic Panel; Complete Time: 08:35 rn 04/26 07:34 Order name: CBC with Diff; Complete Time: 08:26 rn 04/26 07:34 Order name: LFT's; Complete Time: 08:35 rn 04/26 07:34 Order name: NT PRO-BNP; Complete Time: 08:35 rn 04/26 07:34 Order name: Troponin HS; Complete Time: 08:35 rn 04/26 10:39 Order name: Basic Metabolic Panel EDMS 04/26 10:39 Order name: Basic Metabolic Panel EDMS 04/26 10:39 Order name: Basic Metabolic Panel EDMS 04/26 10:39 Order name: Basic Metabolic Panel EDMS 04/26 10:39 Order name: CBC with Automated Diff EDMS 04/26 10:39 Order name: CBC with Automated Diff EDMS 04/26 10:39 Order name: CBC with Automated Diff EDMS 04/26 10:39 Order name: CBC with Automated Diff EDMS 04/26 10:39 Order name: Troponin High Sensitivity EDMS 04/26 10:39 Order name: Troponin High Sensitivity EDMS 04/26 10:39 Order name: Troponin High Sensitivity EDMS 04/26 10:39 Order name: Troponin High Sensitivity EDMS 04/26 11:16 Order name: Hemoglobin A1c EDMS 04/26 11:16 Order name: Hemoglobin A1c EDMS 04/26 11:16 Order name: Lipid Profile EDMS 04/26 11:16 Order name: Lipid Profile EDMS 04/26 14:41 Order name: Lipid Profile EDMS 04/26 07:34 Order name: XRAY Chest (1 view); Complete Time: 08:26 rn 04/26 07:35 Order name: CT Head Brain wo Cont; Complete Time: 08:26 rn 04/26 08:34 Order name: CT Chest For PE Angio; Complete Time: 09:49 rn 04/26 09:03 Order name: CT Abd/Pelvis - IV Contrast Only; Complete Time: 09:49 rn 04/26 11:02 Order name: Echo with Doppler EDMS 04/26 07:34 Order name: EKG; Complete Time: 07:35 rn 04/26 10:39 Order name: CONS Physician Consult EDMS 04/26 10:39 Order name: EKG Electrocardiogram EDMI 04/26 10:39 Order name: EKG Electrocardiogram EDMI 04/26 10:39 Order name: EKG Electrocardiogram EDMI 04/26 10:39 Order name: EKG Electrocardiogram EDMI 04/26 07:34 Order name: Cardiac monitoring; Complete Time: 07:48 rn 04/26 07:34 Order name: EKG - Nurse/Tech; Complete Time: 07:48 rn 04/26 07:34 Order name: IV Saline Lock; Complete Time: 08:07 rn 04/26 07:34 Order name: Labs collected and sent; Complete Time: 08:07 rn 04/26 07:34 Order name: O2 Per Protocol; Complete Time: 07:52 rn 04/26 07:34 Order name: O2 Sat Monitoring; Complete Time: 07:52 rn EC:43 Rate is 74 beats/min. Rhythm is regular. QRS [place] is Normal. VT interval is normal. QRS rn interval is normal. QT interval is normal. No Q waves. T waves are Normal. No ST changes noted. Clinical impression: NSR w/ Non-specific ST/T Changes. Interpreted by me. Reviewed by me. Administered Medications: 08:52 Drug: Aspirin PO Chewable Tablet 324 mg PO once; 81 mg tablets x 4 Route: PO; ld1 20:52 Follow up: Response: No adverse reaction [email or web address] Disposition Summary: 04/26/23 09:54 Hospitalization Ordered Notes: Hospitalization Status: Observation rn Condition: Stable rn Problem: new rn Symptoms: have improved rn Bed/Room Type: Standard rn Provider: Moe Elder(04/26/23 11:56) rn Location: Telemetry/MedSurg (observation)(04/26/23 21:27) rv1 Room Assignment: 224(04/26/23 21:27) rv1 Diagnosis - Dizziness and giddiness rn - Essential (primary) hypertension rn - Elevated troponin rn Forms: - Medication Reconciliation Form rn - SBAR form rn - Leadership Thank You Letter rn Signatures: Dispatcher [employer] Jeovany Colin MD MD rn Baxter, Heather RN Francisco Bobo RN RN jl7 Zena Daniels RN RN ld1 Christen Vela rv1 Cookie Meeks RN jw7 Corrections: (The following items were deleted from the chart) 11:56 09:54 Eder Biggs rn rn 16:00 09:54 Telemetry/MedSurg (observation) rn jl7 16::54 aliyah jl7 16:00 [facility] ER [facility] jl7 rv1 16:00 [facility]- jl7 rv1
[2023-04-26] MEDS ORDERED: ACETAMINOPHEN 500 MG TAB PO PRN (10:33)
--- NOTE | 2023-04-26 10:42 | P.HP ---
Certification for Inpatient Patient admitted to: Observation With expected LOS: <2 Midnights Patient will require the following post-hospital care: None Practitioner: I am a practitioner with admitting privileges, knowledge of patient current condition, hospital course, and medical plan of care. Services: Services provided to patient in accordance with Admission requirements found in Title 42 Section 412.3 of the Code of Federal Regulations <Kerrie Baltazar - Last Filed: 04/26/23 10:58> Patient History Date of Service: 04/26/23 Reason for admission: Dizziness, Elevated Troponin, Hypertension History of Present Illness: , 33-year-old male patient presented to the emergency room via wheelchair with complaints of dizziness. Patient started feeling dizzy and feeling cold while driving back from work this morning. Patient had to stop the car to parking lot and called the EMS. Patient had experience similar episode in the past but mild. Patient felt dizzy anxious and tingling all over heaviness to both the arms. Not associated with other symptoms and not relieved by anything. Patient reports similar episode 2 years ago and diagnosed with panic attack. Patient denies taking any medication except [id number] pain medication (aleve) for last 2 days for back pain. Patient denies chest pain, shortness of breath, nausea or vomiting. Patient reports the symptoms are relieved without any intervention. ED course Vital signs blood pressure 166/113, pulse 83, respirations 16, temperature 98.1, pulse ox 100%, on room air. EKG shows heart rate is 74 bpm rhythm is regular QRS axis is normal, HI interval is normal, QRS interval is normal, QT interval is normal no Q waves, T waves are normal, no ST changes noted normal sinus rhythm with nonspecific ST/T wave changes. Initial lab findings significant for elevated troponin I 126.7, CBC and metabolic panel reassuring, chest x-ray shows pulmonary congestion, CT scan chest and head are negative. Admitting the patient the diagnosis of dizziness and giddiness, essential hypertension, and elevated troponin. Home medications list reviewed: Yes - Past Medical/Surgical History Diabetic: No - Family History Father -: Heart disease Mother -: Diabetes - Social History Alcohol use: Yes CD- Drugs: No Caffeine use: No <BaltazarFredrick oliveroslorrie - Last Filed: 04/26/23 10:58> Date of Service: 04/26/23 <Moe Elder - Last Filed: 04/26/23 17:47> Allergies No Known Allergies Allergy (Verified 09/25/20 06:01) Review of Systems 10-point ROS is otherwise unremarkable <BaltazarFredrick oliveroslorrie - Last Filed: 04/26/23 10:58> Physical Examination - Physical Exam General: Alert, In no apparent distress, Oriented x3, Cooperative HEENT: Atraumatic, Normocephalic, PERRLA Neck: Supple, 2+ carotid pulse no bruit Respiratory: Clear to auscultation bilaterally, Normal air movement Cardiovascular: No edema, Normal pulses, Normal S1 S2 Capillary refill: <2 Seconds Gastrointestinal: Normal bowel sounds, Soft and benign, Non-distended Musculoskeletal: No clubbing, No swelling, No warmth Integumentary: No rashes, No breakdown Neurological: Normal gait, Normal speech, Normal affect - Studies Laboratory Data (last 24 hrs) 04/26/23 04/26/23 08:00 08:00 WBC 7.10 Hgb 14.8 Hct 43.1 Plt Count 262 Sodium 137 Potassium 3.8 BUN 12 Creatinine 0.95 Glucose 95 Total Bilirubin 0.3 AST 25 ALT 51 Alkaline Phosphatase 103 <Dasha Baltazarguero - Last Filed: 04/26/23 10:58> - Studies Laboratory Data (last 24 hrs) 04/26/23 04/26/23 04/26/23 08:00 08:00 08:00 WBC 7.10 Hgb 14.8 Hct 43.1 Plt Count 262 Sodium 137 Potassium 3.8 BUN 12 Creatinine 0.95 Glucose 95 Total Bilirubin 0.3 AST 25 ALT 51 Alkaline Phosphatase 103 Triglycerides 121 Cholesterol 240 H HDL Cholesterol 41 Cholesterol/HDL Ratio 5.85 <Moe Elder - Last Filed: 04/26/23 17:47> Assessment and Plan - Problems (Diagnosis) (1) Dizziness Current Visit: Yes Status: Acute (2) HTN (hypertension) Current Visit: Yes Status: Acute Qualifiers: Hypertension type: primary hypertension Qualified Code(s): I10 - Essential (primary) hypertension (3) Elevated troponin Current Visit: Yes Status: Acute - Plan (1) Dizziness Current Visit: Yes Status: Acute (2) HTN (hypertension) Current Visit: Yes Status: Acute (3) Elevated troponin Current Visit: Yes Status: Acute Based on history and physical examination, cannot exclude ischemia as a possible etiology of his episode. - EKG: No obvious ST segment changes, trend - Serial troponin - Ordered transthoracic echocardiogram - Ordered chest x-ray - pulmonary congestion (patient reports COVID-19 Infection in February 2023) - Management plan: - Consult Cardiology - Dr. Burciaga - S/P aspirin 324 mg PO x 1 in ED - Start daily baby aspirin - Symptom control with PRN acetaminophen, nitroglycerin, morphine -Blood pressure is trending down, we will watch the blood pressure closely and start antihypertensive if needed -Low-sodium diet Discharge Plan: Home Plan to discharge in: 24 Hours - Advance Directives Does patient have a Living Will: No Does patient have a Durable POA for Healthcare: No - Code Status/Comfort Care Code Status Assessed: No (full code) Code Status: Full Code Physician Review: Patient Assessed, Agree with Above Assessment and Plan Critical Care: No Time Spent Managing Pts Care (In Minutes): 55 (miutes) <Kerrie Baltazar - Last Filed: 04/26/23 10:58> Physician Review Additional Text: Pt seen and examined. i agree with the note by the MINISTER ASSISTANT. Pt presents with dizziness that started while he was driving. On admission, lab studies show troponin 126. Pt denies taking any new meds except aleve that he took a few days ago for back pain. Pt denies any sick contact. CXR shows pulm congestion. He had COVID in February 2023. A/P Will admist pt to r/o ACS. trend troponin Q6h. Will follow up EKG. Pt was advised to lose weight DVT ppx: SCD <Moe Elder - Last Filed: 04/26/23 17:47>
[2023-04-26] MEDS ORDERED: MORPHINE 2 MG/ML SYR IV PRN (10:59)
[2023-04-26] MEDS ORDERED: NITROGLYCERIN 0.4 MG/TAB SL PRN (10:59)
[2023-04-26 14:25] VITALS: BMI 48.6
[2023-04-26 22:52] LABS: Thyroid Stimulating Hormone 2.24 uIU/mL (0.358-3.740)
[2023-04-26 23:16] LABS: Specific Gravity 1.022 (1.005-1.030); Urine Bilirubin NEGATIVE (Negative); Urine Blood Negative (Negative); Urine Clarity Clear (Clear); Urine Color Light-Yellow (Yellow); Urine Glucose NEGATIVE (Negative); Urine Protein NEGATIVE (Negative); Urine Urobilinogen Normal (Normal); Urine pH 5.5 (5.0-7.0)
[2023-04-27 01:46] LABS: Absolute Lymphocytes (CBC) 3.7 K/uL (0.7-4.9); Hematocrit 41.3 % (39.6-49.0); Lymphocytes % 45.7 % (15.3-44.8); MCV 84.9 fL (80-100); MPV 7.7 fL (7.6-11.3); Platelets 258 thou/uL (152-406); RBC Red Blood Cell Count 4.87 M/uL (4.33-5.43)
[2023-04-27 02:15] LABS: Potassium 4.2 mEq/L (3.5-5.1)
--- NOTE | 2023-04-27 12:08 | P.PN ---
Subjective Date of Service: 04/27/23 Chief Complaint: Dizziness, Elevated Troponin, Hypertension Pt is resting comfortably in bed. Pt denies any chest pain, SOB or dizziness. Cardiology will do NM stress test in am. No complaints. Review of Systems 10-point ROS is otherwise unremarkable General: Other (morbidly obese), Unremarkable Eyes: Unremarkable ENT: Unremarkable Respiratory: Unremarkable Cardiovascular: Unremarkable Gastrointestinal: Unremarkable Genitourinary: Unremarkable Musculoskeletal: Unremarkable Integumentary: Unremarkable Neurological: Unremarkable Lymphatics: Unremarkable Physical Examination - Vital Signs Temperature: 97.6 F Blood Pressure: 116/61 Pulse: 60 Respirations: 18 Pulse Ox (%): 96 - Physical Exam General: In no apparent distress, Oriented x3, Cooperative HEENT: Atraumatic, Normocephalic, PERRLA Neck: Supple, 2+ carotid pulse no bruit Respiratory: Clear to auscultation bilaterally, Normal air movement Cardiovascular: No edema, Normal pulses, Normal S1 S2 Capillary refill: <2 Seconds Gastrointestinal: Normal bowel sounds, Hypoactive, Non-distended Musculoskeletal: No clubbing, No swelling, No erythema Integumentary: No rashes, No breakdown Neurological: Normal gait, Normal speech, Cranial nerves 3-12 intact Lymphatics: No axilla or inguinal lymphadenopathy - Studies Laboratory Data (last 24 hrs) 04/26/23 08:00 Triglycerides 121 Cholesterol 240 H HDL Cholesterol 41 Cholesterol/HDL Ratio 5.85 Assessment And Plan - Plan Dizziness: Unknown etiology. Pt denies dizziness this am. Will follow up Echo and orthostatic vital signs. Elevated troponin: Will r/o ACS. Troponin 113 <- 118. Cardiology is following. Will do NM stress test in Am. Htn: continue home meds. Morbid obesity: Pt was advised to lose weight. HLD: LDL is 167. Will start atorvastatin DVT ppx: SCD Dispo: pending hospital course Discharge Plan: Home Plan to discharge in: 24 Hours - Code Status/Comfort Care Code Status Assessed: Yes Code Status: Full Code Physician Review: Patient Assessed, Agree with Above Assessment and Plan
[2023-04-27] MEDS ORDERED: TRAMADOL HCL 50 MG TAB PO PRN (12:09)
[2023-04-27] MEDS: ENOXAPARIN 40 MG/0.4 ML SQ SCH (13:09)
[2023-04-27] MEDS: ASPIRIN EC 81 MG TAB PO SCH (13:11)
--- NOTE | 2023-04-27 13:32 | EKG ---
Test Date: 2023-04-26 Test Time: 07:42:06 Generation Engineer: ANNIKA MEASUREMENT RESULTS: Intervals: Rate: 74 MN: 138 QRSD: 96 QT: 356 QTc: 395 [place]: P: 16 MN: 138 QRS: 56 T: 40 INTERPRETIVE STATEMENTS: Normal sinus rhythm Normal ECG Compared to ECG 09/25/2020 01:14:36 Right-axis deviation no longer present T-wave abnormality no longer present Electronically Signed On 04-27-23 13:27:25 ACCOUNTING MANAGER ASSISTANT CONTROLLER by Dajuan Burciaga
--- NOTE | 2023-04-27 13:34 | ECHO ---
HEIGHT: 5 ft 8 in WEIGHT: 320 lb 0 oz DATE OF STUDY: 04/27/[address]: Kerrie Baltazar NP 2-DIMENSIONAL: YES M.MODE: YES DOPPLER: YES COLOR FLOW: YES TDS: PORTABLE: YES DEFINITY: BUBBLE STUDY: DIAGNOSIS: HYPERTENSION, ELEVATED TROPONIN CARDIAC HISTORY: CATHERIZATION: NO SURGERY: NO PROSTHETIC VALVE: NO PACEMAKER: NO MEASUREMENTS (cm) DIASTOLIC (NORMALS) SYSTOLIC (NORMALS) IVSd 1.3 (0.6-1.2) LA Diam 3.4 (1.9-4.0) LVEF 53% LVIDd 4.2 (3.5-5.7) LVIDs 3.1 (2.0-3.5) %FS 27% LVPWd 1.4 (0.6-1.2) Ao Diam 2.9 (2.0-3.7) 2 DIMENSIONAL ASSESSMENT: RIGHT ATRIUM: NORMAL LEFT ATRIUM: NORMAL RIGHT VENTRICLE: NORMAL LEFT VENTRICLE: LEFT VENTRICULAR HYPERTROPHY TRICUSPID VALVE: NORMAL MITRAL VALVE: MILD MITRAL REGURGITATION PULMONIC VALVE: NORMAL AORTIC VALVE: NORMAL PERICARDIAL EFFUSION: NONE AORTIC ROOT: NORMAL LEFT VENTRICULAR WALL MOTION: NORMAL DOPPLER/COLOR FLOW: SEE BELOW COMMENTS: 1. NORMAL LEFT VENTRICULAR EJECTION FRACTION 55-60% WITH NORMAL WALL MOTION 2. MILD CONCENTRIC LEFT VENTRICULAR HYPERTROPHY 3. NORMAL DIASTOLIC FUNCTION 4. MILD MITRAL REGURGITATION TECHNOLOGIST: DAVON JIMENEZ
[2023-04-27] MEDS: ATORVASTATIN 40 MG TAB PO SCH (20:20)
[2023-04-28 02:11] LABS: Absolute Lymphocytes (CBC) 3.5 K/uL (0.7-4.9); Hematocrit 41.8 % (39.6-49.0); Lymphocytes % 43.5 % (15.3-44.8); MCV 85.6 fL (80-100); Platelets 262 thou/uL (152-406); RBC Red Blood Cell Count 4.88 M/uL (4.33-5.43)
[2023-04-28 02:23] LABS: Potassium 3.9 mEq/L (3.5-5.1)
[2023-04-28] MEDS ORDERED: POTASSIUM CL SA 10 MEQ TAB PO ONE (09:00)
[2023-04-28] MEDS: ENOXAPARIN 40 MG/0.4 ML SQ SCH (09:00)
[2023-04-28] MEDS ORDERED: REGADENOSON 0.4 MG/5 ML SYR IV ONE (09:04)
--- NOTE | 2023-04-28 11:58 | RAD REPORT ---
EXAM DESCRIPTION: NM - Rest Stress Cardiac Imaging - 04/28/2023 10:01 am CLINICAL HISTORY: ELEVATED TROPONIN COMPARISON: No comparisons TECHNIQUE: The patient was administered approximately 11.0 mCi of Tc 99m Sestamibi prior to resting SPECT imaging of the heart. The patient was then administered approximately 31.8 mCi of Tc 99m Sestam ibi following exercise or pharmacologic stress. Multiplanar SPECT images were reviewed. FINDINGS: Questionable small region of reversible mild attenuation of uptake involving the mid to ba katharina junction of inferior and lateral mcdermott, could be artifactual or related to a small region of isch emia. Small fixed defect involving the anterior wall mid to apical segments suggestive of scarring/ p rior infarct. The end diastolic volume is 148 ml, the end systolic volume is 63 ml, and the ejection fraction is 58 %. IMPRESSION: Questionable region of reversible uptake involving junction of inferior and lateral wall s near the base, may represent a small region of ischemia or artifact. Small fixed defect involving the anterior wall mid to apical segments suggestive of prior infarct or scarring. Normal left ventricular ejection fraction, 58%.
--- NOTE | 2023-04-28 12:20 | P.PN ---
Subjective Date of Service: 04/28/23 Chief Complaint: Dizziness, Elevated Troponin, Hypertension Pt is resting comfortably in bed. Pt denies any chest pain, SOB or dizziness. Cardiology will do NM stress test today. No complaints. Review of Systems General: Unremarkable Eyes: Unremarkable ENT: Unremarkable Respiratory: Unremarkable Cardiovascular: Unremarkable Gastrointestinal: Unremarkable Genitourinary: Unremarkable Musculoskeletal: Unremarkable Integumentary: Unremarkable Neurological: Unremarkable Lymphatics: Unremarkable Physical Examination - Vital Signs Temperature: 96.9 F Blood Pressure: 127/76 Pulse: 61 Respirations: 16 Pulse Ox (%): 98 - Physical Exam General: Alert, In no apparent distress, Oriented x3 HEENT: Atraumatic, Normocephalic, PERRLA Neck: Supple, 2+ carotid pulse no bruit Respiratory: Clear to auscultation bilaterally, Normal air movement Cardiovascular: No edema, Normal pulses, Normal S1 S2 Capillary refill: <2 Seconds Gastrointestinal: Normal bowel sounds, Soft and benign, Non-distended Musculoskeletal: No clubbing, No swelling Integumentary: No rashes, No breakdown Neurological: Normal gait, Normal speech, Normal strength at 5/5 x4 extr Lymphatics: No axilla or inguinal lymphadenopathy Assessment And Plan - Plan Dizziness: Unknown etiology. Pt denies dizziness. Will follow up Echo and orthostatic vital signs. Elevated troponin: Will r/o ACS. Troponin 113 <- 118. Cardiology is following. Will do NM stress test today. Htn: continue home meds. Morbid obesity: Pt was advised to lose weight. HLD: LDL is 167. Will start atorvastatin DVT ppx: SCD Dispo: pending hospital course Discharge Plan: Home Plan to discharge in: 24 Hours - Code Status/Comfort Care Code Status Assessed: Yes Code Status: Full Code Physician Review: Patient Assessed, Agree with Above Assessment and Plan
[2023-04-28] MEDS: ASPIRIN EC 81 MG TAB PO SCH (12:32)
--- NOTE | 2023-04-28 18:05 | RAD REPORT ---
EXAM DESCRIPTION: RAD - Lumbar Spine 3 Views - 04/28/2023 5:58 pm CLINICAL HISTORY: Back pain Radiculopathy COMPARISON: No comparisons FINDINGS: Vertebral body heights appear maintained. No compression fracture noted. Mild disc thinnin g at L4-5 and L5-S1. 5-7 mm retrolisthesis of L5 on S1 is seen. Bilateral spondylolysis may be presen t at this level. Follow-up MRI of the lumbar spine may be useful for further assessment of disc disea se.
[2023-04-28] MEDS: IBUPROFEN 400 MG TAB PO PRN (18:22)
[2023-04-28] MEDS: ATORVASTATIN 40 MG TAB PO SCH (21:00)
[2023-04-29 02:28] LABS: Lymphocytes % 39.1 % (15.3-44.8); MCV 85.2 fL (80-100); Platelets 283 thou/uL (152-406); RBC Red Blood Cell Count 5.05 M/uL (4.33-5.43)
[2023-04-29 03:04] LABS: Potassium 3.8 mEq/L (3.5-5.1)
--- NOTE | 2023-04-29 08:36 | TREADPHA ---
DX: ELEVATED TROPONIN Date of Study: 04/28/2023 Ht: 5' 8 " Wt: 320 lb 0 oz Consulting Physician: CATALINA MEDICATIONS: TYLENOL, ASPIRIN, LIPITOR, LOVENOX, MORPHINE, NITROSTAT, KLOR-CON, ULTRAM HISTORY: 33 YEAR OLD MALE WITH COMPLAINTS OF ANXIETY, ELEVATED TROPONIN PHYSICIAL EXAMINATION: RESTING B.P.: 131/81 RESTING H.R.: 74 RESTING EKG: NORMAL SINUS RHYTHM, WITHIN NORMAL LIMITS PROTOCOL: PHARMACOLOGIC EXERCISE TIME: 3:30 B.P. AT PEAK STRESS: 164/71 IMPRESSION: LEXISCAN INJECTED. CARDIOLITE INJECTED PER PROTOCOL - SEE NUCLEAR MEDICINE REPORT. NO SUPRAVENTRICULAR TACHYCARDIA, VENTRICULAR TACHYCARDIA, PREMATURE ATRIAL COMPLEXES, PREMATURE VENTRICULAR COMPLEXES NOTED. PATIENT DENIES CHEST PAIN OR SHORTNESS OF BREATH. CAFFEINE PROVIDED. NO ELECTROCARDIOGRAM CHANGES OF ISCHEMIA WITH LEXISCAN.
[2023-04-29] MEDS ORDERED: POTASSIUM CL SA 10 MEQ TAB PO ONE ×2 (09:00→15:00)
[2023-04-29] MEDS: ENOXAPARIN 40 MG/0.4 ML SQ SCH (09:00)
[2023-04-29] MEDS: ASPIRIN EC 81 MG TAB PO SCH (09:00)
[2023-04-29] MEDS ORDERED: NITROGLYCERIN 0.4 MG/TAB SL PRN (12:06)
[2023-04-29] MEDS ORDERED: ACETAMINOPHEN 500 MG TAB PO PRN (12:06)
[2023-04-29] MEDS ORDERED: MORPHINE 2 MG/ML SYR IV PRN (12:07)
[2023-04-29] MEDS ORDERED: TRAMADOL HCL 50 MG TAB PO PRN (12:08)
--- NOTE | 2023-04-29 13:05 | P.CNS ---
Date of Consult: 04/26/23 Reason for Consult: Near syncope, elevated troponin Requesting Physician: Moe Elder Primary Care Provider: None Chief Complaint: Dizziness, Elevated Troponin, Hypertension History of Present Illness: Mr. Biswas is a 33 yo patient that states he has no medical problems and takes no medications. He was driving home from work when he became suddenly "panicked", he states he was very dizzy and pulled over his vehicle because he felt like he was going to pass out. Describes some nausea and dread. He states this has happened before about two years ago. He presented to the ED at that time with chest pain. His troponin was elevated but it trended down and he states he was told it was a panic attack. The troponin is elevated in the ED today at 120.7. He was admitted to Medicine. Allergies No Known Allergies Allergy (Verified 09/25/20 06:01) Home medications list reviewed: Yes (none) Home Medications: NK [No Home Meds] 04/26/23 - Past Medical/Surgical History Diabetic: No Past Medical History: Patient denies medical history Past Surgical History: Patient denies surgical history Psychosocial/ Personal History: lives at home with his - Family History Father Medical History: Heart disease, Hypertension Mother Medical History: Diabetes - Social History Smoking Status: Unknown if ever smoked Alcohol use: Yes CD- Drugs: No Caffeine use: No Place of Residence: Home Review of Systems 10-point ROS is otherwise unremarkable Gastrointestinal: Nausea Neurological: As per HPI Physical Examination Temp Pulse Resp BP Pulse Ox 97.6 F 56 16 120/55 L 100 04/29/23 08:00 04/29/23 08:00 04/29/23 08:00 04/29/23 08:00 04/29/23 08:00 General: Alert, In no apparent distress, Oriented x3, Obese HEENT: Atraumatic, Normocephalic, PERRLA Neck: Supple, 2+ carotid pulse no bruit, JVD not distended Respiratory: Clear to auscultation bilaterally Cardiovascular: No edema, Normal pulses, Regular rate/rhythm Capillary refill: <2 Seconds Gastrointestinal: Normal bowel sounds, Soft and benign Musculoskeletal: No clubbing Integumentary: No rashes Neurological: Normal speech, Normal tone Lymphatics: No axilla or inguinal lymphadenopathy External genitalia: Deferred Rectal: Deferred - Problems (1) Elevated troponin I measurement Current Visit: Yes Status: Acute Plan: Will trend troponins, ECHO, NM stress test. HTN noted in ED, will start antihypertensives, asa, lovenox
--- NOTE | 2023-04-29 13:12 | P.PN ---
Subjective Date of Service: 04/27/23 Primary Care Provider: None Chief Complaint: Dizziness, Elevated Troponin, Hypertension Subjective: No new changes, No C/O voiced, Tolerating diet Review of Systems 10-point ROS is otherwise unremarkable Physical Examination - Vital Signs Temperature: 97.6 F Blood Pressure: 120/55 Pulse: 56 Respirations: 16 Pulse Ox (%): 100 - Physical Exam General: Alert, In no apparent distress, Oriented x3, Obese HEENT: Atraumatic, Normocephalic Neck: Supple, 2+ carotid pulse no bruit, JVD not distended Respiratory: Clear to auscultation bilaterally, Normal air movement Cardiovascular: No edema, Normal pulses, Regular rate/rhythm Capillary refill: <2 Seconds Gastrointestinal: Normal bowel sounds, Soft and benign Musculoskeletal: No clubbing Integumentary: No rashes External genitalia: Deferred Rectal: Deferred Assessment And Plan - Current Problems (Diagnosis) (1) Elevated troponin I measurement Current Visit: Yes Status: Acute Plan: Will trend troponins, ECHO, NM stress test. HTN noted in ED, will start antihypertensives, asa, lovenox 04/26/23 Awaiting ECHO, NM study 04/27/23 Physician Review: Patient Assessed, Agree with Above Assessment and Plan
--- NOTE | 2023-04-29 13:15 | P.PN ---
Subjective Date of Service: 04/28/23 Primary Care Provider: None Chief Complaint: Dizziness, Elevated Troponin, Hypertension Subjective: No new changes, No C/O voiced, Tolerating diet, Other (pt would like to go home) Physical Examination - Vital Signs Temperature: 97.6 F Blood Pressure: 120/55 Pulse: 56 Respirations: 16 Pulse Ox (%): 100 - Physical Exam General: Alert, In no apparent distress, Oriented x3, Obese HEENT: Atraumatic, Normocephalic, PERRLA Neck: 2+ carotid pulse no bruit, JVD not distended Respiratory: Clear to auscultation bilaterally, Normal air movement Cardiovascular: No edema, Normal pulses, Regular rate/rhythm Capillary refill: <2 Seconds Gastrointestinal: Normal bowel sounds, Soft and benign Musculoskeletal: No clubbing Integumentary: No rashes Neurological: Normal speech, Normal tone Lymphatics: No axilla or inguinal lymphadenopathy External genitalia: Deferred Rectal: Deferred Assessment And Plan - Current Problems (Diagnosis) (1) Elevated troponin I measurement Current Visit: Yes Status: Acute Plan: Will trend troponins, ECHO, NM stress test. HTN noted in ED, will start antihypertensives, asa, lovenox 04/26/23 Awaiting ECHO, NM study 04/27/23 ECHO negative, EF 55-60%, LVH, awaiting stress test results 04/28/23, continue medications as above. Apparently pt did not rec Lovenox as ordered today? Physician Review: Patient Assessed, Agree with Above Assessment and Plan
--- NOTE | 2023-04-29 13:21 | P.PN ---
Subjective Date of Service: 04/29/23 Primary Care Provider: None Chief Complaint: Dizziness, Elevated Troponin, Hypertension Subjective: No new changes, No C/O voiced, Tolerating diet (pt is frustrated as he does not know why he is here if everything is normal) Review of Systems 10-point ROS is otherwise unremarkable Physical Examination - Vital Signs Temperature: 97.6 F Blood Pressure: 120/55 Pulse: 56 Respirations: 16 Pulse Ox (%): 100 - Physical Exam General: Alert, In no apparent distress, Oriented x3, Obese HEENT: Atraumatic, Normocephalic, PERRLA Neck: Supple, 2+ carotid pulse no bruit, JVD not distended Respiratory: Clear to auscultation bilaterally, Normal air movement Cardiovascular: No edema Capillary refill: <2 Seconds Gastrointestinal: Normal bowel sounds, Soft and benign Musculoskeletal: No clubbing Integumentary: No rashes Lymphatics: No axilla or inguinal lymphadenopathy External genitalia: Deferred Rectal: Deferred Assessment And Plan - Current Problems (Diagnosis) (1) Elevated troponin I measurement Onset Date: ~04/26/23 Current Visit: Yes Status: Acute Plan: Will trend troponins, ECHO, NM stress test. HTN noted in ED, will start antihypertensives, asa, lovenox 04/26/23 Awaiting ECHO, NM study 04/27/23 ECHO negative, EF 55-60%, LVH, awaiting stress test results 04/28/23, continue medications as above. Apparently pt did not rec Lovenox as ordered today? NM study abnormal, shows fixed defect to anterior wall mid to apical suggestive of prior infarct. Questionable area of reversible uptake involving the junction of inferior and lateral mcdermott near the base, concerning for ischemia. As pt is young, on no routine medications, and has presumably had a prior cardiac event, we will keep him inpatient tonight, start him on Heparin drip as he has not been rec'ing ordered Lovenox, keep him NPO post MN and take him for cardiac cath tomorrow. Physician Review: Patient Assessed, Agree with Above Assessment and Plan
--- NOTE | 2023-04-29 14:58 | P.PN ---
Subjective Date of Service: 04/29/23 Primary Care Provider: None Chief Complaint: Dizziness, Elevated Troponin, Hypertension Pt is resting comfortably in bed. Pt denies any chest pain, SOB or dizziness. Cardiology did NM stress test and it was abnormal. Will do Cardiac cath tomorrow. No complaints. Review of Systems 10-point ROS is otherwise unremarkable General: Unremarkable Eyes: Unremarkable ENT: Unremarkable Respiratory: Unremarkable Cardiovascular: Unremarkable Gastrointestinal: Unremarkable Genitourinary: Unremarkable Musculoskeletal: Unremarkable Integumentary: Unremarkable Neurological: Unremarkable Lymphatics: Unremarkable Physical Examination - Vital Signs Temperature: 97.6 F Blood Pressure: 120/55 Pulse: 56 Respirations: 16 Pulse Ox (%): 100 - Physical Exam General: Alert, In no apparent distress, Oriented x3, Obese (morbid obesity) HEENT: Atraumatic, Normocephalic Neck: Supple, 2+ carotid pulse no bruit, No Thyromegaly Respiratory: Clear to auscultation bilaterally, Normal air movement Cardiovascular: No edema, Normal pulses, Regular rate/rhythm, Normal S1 S2 Capillary refill: <2 Seconds Gastrointestinal: Normal bowel sounds, Soft and benign, Non-distended Musculoskeletal: No clubbing, No swelling Integumentary: No rashes, No breakdown Neurological: Normal gait, Normal speech, Normal strength at 5/5 x4 extr Lymphatics: No axilla or inguinal lymphadenopathy Assessment And Plan - Plan Dizziness: Unknown etiology. Pt denies dizziness. Echo shows EF 58%. Elevated troponin: Will r/o ACS. Troponin 113 <- 118. Cardiology is following. NM stress test is abnormal. It shows questionable region of reversible uptake involving junction of inferior and lateral mcdermott near the base, may represent a small region of ischemia or artifact. Small fixed defect involving the anterior wall mid to apical segments suggestive of prior infarct or scarring. Will contin ue lovenox subq and do Cardiac cath tomorrow Htn: continue home meds. Morbid obesity: Pt was advised to lose weight. HLD: LDL is 167. Will start atorvastatin Back pain: Lumbar x-ray shows disc thinning around L4 - L5 and L5 to S1. The pain improved after he took motrin. He wanst to follow up with his PCP for further imaging like MRI lumbar spine. DVT ppx: SCD Dispo: pending hospital course. cardiology will do Cardiac cath tomorrow. Physician Review: Patient Assessed, Agree with Above Assessment and Plan
[2023-04-29 15:31] LABS: Absolute Lymphocytes (CBC) 1.9 K/uL (0.7-4.9); Hematocrit 45.7 % (39.6-49.0); Lymphocytes % 25.2 % (15.3-44.8); MCV 84.8 fL (80-100); MPV 7.5 fL (7.6-11.3); Platelets 265 thou/uL (152-406); RBC Red Blood Cell Count 5.39 M/uL (4.33-5.43)
[2023-04-29 15:37] LABS: Protime INR 1.13
[2023-04-29] MEDS: HEPARIN/D5W 25,000 UNIT/500 ML BAG IV SCH (15:41)
[2023-04-29] MEDS: IBUPROFEN 400 MG TAB PO PRN (20:23)
[2023-04-29] MEDS: ATORVASTATIN 40 MG TAB PO SCH (20:23)
[2023-04-30 02:59] LABS: Potassium 4.2 mEq/L (3.5-5.1)
--- NOTE | 2023-04-30 08:13 | P.PN ---
Subjective Date of Service: 04/30/23 Primary Care Provider: None Chief Complaint: Dizziness, Elevated Troponin, Hypertension Subjective: No new changes, Doing well Review of Systems 10-point ROS is otherwise unremarkable Physical Examination - Vital Signs Temperature: 97.7 F Blood Pressure: 118/59 Pulse: 57 Respirations: 18 Pulse Ox (%): 95 - Physical Exam General: Alert, Oriented x3 HEENT: Atraumatic, Normocephalic, PERRLA Neck: Supple, 2+ carotid pulse no bruit Respiratory: Clear to auscultation bilaterally, Normal air movement Cardiovascular: No edema Capillary refill: <2 Seconds Gastrointestinal: Normal bowel sounds, Soft and benign Musculoskeletal: No clubbing Integumentary: No rashes Neurological: Normal speech, Normal tone Lymphatics: No axilla or inguinal lymphadenopathy External genitalia: Deferred Rectal: Deferred Assessment And Plan - Current Problems (Diagnosis) (1) Elevated troponin I measurement Onset Date: ~04/26/23 Current Visit: Yes Status: Acute Plan: Will trend troponins, ECHO, NM stress test. HTN noted in ED, will start antihypertensives, asa, lovenox 04/26/23 Awaiting ECHO, NM study 04/27/23 ECHO negative, EF 55-60%, LVH, awaiting stress test results 04/28/23, continue medications as above. Apparently pt did not rec Lovenox as ordered today? NM study abnormal, shows fixed defect to anterior wall mid to apical suggestive of prior infarct. Questionable area of reversible uptake involving the junction of inferior and lateral mcdermott near the base, concerning for ischemia. As pt is young, on no routine medications, and has presumably had a prior cardiac event, we will keep him inpatient tonight, start him on Heparin drip as he has not been rec'ing ordered Lovenox, keep him NPO post MN and take him for cardiac cath tomorrow. 04/30/23 - Will take to [facility] today Discharge Plan: Home Plan to discharge in: 24 Hours Physician Review: Patient Assessed, Agree with Above Assessment and Plan
[2023-04-30] MEDS: ASPIRIN EC 81 MG TAB PO SCH (08:31)
[2023-04-30] MEDS ORDERED: ENOXAPARIN 40 MG/0.4 ML SQ SCH (09:00)
--- NOTE | 2023-04-30 10:51 | P.PN ---
Subjective Date of Service: 04/30/23 Primary Care Provider: None Chief Complaint: Dizziness, Elevated Troponin, Hypertension Pt is resting comfortably in bed. Pt denies any chest pain, SOB or dizziness. Cardiology did NM stress test and it was abnormal. Will do Cardiac cath today. No complaints. Review of Systems 10-point ROS is otherwise unremarkable General: Other, Unremarkable Eyes: Unremarkable ENT: Unremarkable Respiratory: Unremarkable Cardiovascular: Unremarkable Gastrointestinal: Unremarkable Genitourinary: Unremarkable Musculoskeletal: Unremarkable Integumentary: Unremarkable Neurological: Unremarkable Lymphatics: Unremarkable Physical Examination - Vital Signs Temperature: 97.7 F Blood Pressure: 118/59 Pulse: 57 Respirations: 18 Pulse Ox (%): 95 Assessment And Plan - Plan Dizziness: Unknown etiology. Pt denies dizziness. Echo shows EF 58%. Elevated troponin: Will r/o ACS. Troponin 113 <- 118. Cardiology is following. NM stress test is abnormal. It shows questionable region of reversible uptake involving junction of inferior and lateral mcdermott near the base, may represent a small region of ischemia or artifact. Small fixed defect involving the anterior wall mid to apical segments suggestive of prior infarct or scarring. Will continue heparin drip and do Cardiac cath today Htn: continue home meds. Morbid obesity: Pt was advised to lose weight. HLD: LDL is 167. Will continue atorvastatin Back pain: Lumbar x-ray shows disc thinning around L4 - L5 and L5 to S1. The pain improved after he took motrin. He wants to follow up with his PCP for further imaging like MRI lumbar spine. DVT ppx: heparin drip Dispo: pending hospital course. cardiology will do cardiac cath today Physician Review: Patient Assessed, Agree with Above Assessment and Plan
[2023-04-30] MEDS: HEPARIN/D5W 25,000 UNIT/500 ML BAG IV SCH (15:22)
[2023-04-30] MEDS ORDERED: NA CHLORIDE 0.9% 500 ML ONE (15:53)
[2023-04-30] MEDS ORDERED: LIDOCAINE 1% 20 ML MDV ONE (16:15)
[2023-04-30] MEDS ORDERED: VERAPAMIL HCL 10 MG/4 ML VIAL IV ONE (16:15)
[2023-04-30] MEDS ORDERED: HEPA 1000U/500MLS 2,000 UNIT/1,000 ML BAG IV ONE (16:15)
[2023-04-30] MEDS ORDERED: HEPARIN 5000 UNIT/ML 1 ML VIAL ONE (16:16)
[2023-04-30] MEDS ORDERED: MIDAZOLAM HCL 2 MG/2 ML INJ ONE (16:16)
[2023-04-30] MEDS ORDERED: FENTANYL CITR 100 MCG/2 ML ONE (16:16)
[2023-04-30] MEDS ORDERED: ATROPINE SULF 1 MG/10 ML SYR IV ONE (16:16)
[2023-04-30] MEDS ORDERED: CLOPIDOGREL 75 MG TABLET ONE (16:17)
[2023-04-30] MEDS ORDERED: HEPARIN 10,000 UNIT/10 ML VIAL IV ONE (16:17)
[2023-04-30] MEDS ORDERED: TICAGRELOR 90 MG TABLET PO ONE (16:17)
[2023-04-30] MEDS: ATORVASTATIN 40 MG TAB PO SCH (19:58)
[2023-04-30] MEDS: IBUPROFEN 400 MG TAB PO PRN (19:58)
[2023-04-30 20:43] VITALS: O2SAT 95
--- NOTE | 2023-04-30 23:34 | OP ---
Date of Procedure: 04/30/2023 Surgeon: DESIREE ARNOLD Procedures Performed: 1.Selective coronary angiogram. 2.Left heart catheterization. Indication: Non-ST elevation myocardial infarction. Access: Right radial artery 6-[place]izen [place] closed with TR band. Complications: None. Bleeding: Less than 20 mL. Total Sedation Time: 1 hour. Description Of Procedure: After risks, benefits, and alternatives were explained, patient agreed to procedure, signed informed consent. Patient was brought into cardiac catheterization laboratory, pre pped and draped in usual sterile fashion. Then, I accessed right radial artery using pediatric micro puncture kit, placed a 6-[place]izen [place] Slender sheath and then I took a 6-[place] JR4 catheter into the aorti c root, engaged the RCA, took standard views, and then we tried multiple catheters, engaged left main , could not find ostium and finally the AL1 catheter was able to engage. This was coming from right coronary cusp with minimal aeration of the left main and then the catheter was pushed over the wire i nto the LV, measured LVEDP, and pullback did not record any gradient. Catheter was removed. Sheath was removed, placed TR band with good hemostasis. Findings: 1.Left main has normally origin, not exactly sure where probably from the right coronary cusp, but t he left main is normal. 2.LAD is normal. Normal diagonal branches. 3.Left circumflex is normal. 4.RCA: Large and normal. 5.LVEDP: Borderline elevated. Conclusion: 1.Normal coronary arteries. 2.Borderline elevated LVEDP. 3.Normal aeration of the left main. Recommendations: Cardiac CT angiogram to further identify the origin of the other lesion and the cou rse of the left main. SR/MODL Voice ID: [id number] Report ID: [id number]
[2023-05-01 06:52] LABS: Absolute Lymphocytes (CBC) 2.5 K/uL (0.7-4.9); Hematocrit 43.3 % (39.6-49.0); Lymphocytes % 38.2 % (15.3-44.8); MCV 85.2 fL (80-100); MPV 7.8 fL (7.6-11.3); Platelets 292 thou/uL (152-406); RBC Red Blood Cell Count 5.08 M/uL (4.33-5.43)
[2023-05-01] MEDS: ASPIRIN EC 81 MG TAB PO SCH (08:25)
[2023-05-01 12:37] VITALS: BP 124/63; TEMP 97.2
--- NOTE | 2023-05-01 12:52 | P.DS ---
Admission Date: 04/28/23 Discharge Date: 05/01/23 Primary Care Provider: None Disposition: ROUTINE DISCHARGE Discharge Condition: GOOD Reason for Admission: Dizziness, Elevated Troponin, Hypertension Procedures: Cardiac catheterization NM stress test Brief History of Present Illness: , 33-year-old male patient presented to the emergency room via wheelchair with complaints of dizziness. Patient started feeling dizzy and feeling cold while driving back from work this morning. Patient had to stop the car to parking lot and called the EMS. Patient had experience similar episode in the past but mild. Patient felt dizzy anxious and tingling all over heaviness to both the arms. Not associated with other symptoms and not relieved by anything. Patient reports similar episode 2 years ago and diagnosed with panic attack. Patient denies taking any medication except [id number] pain medication (aleve) for last 2 days for back pain. Patient denies chest pain, shortness of breath, nausea or vomiting. Patient reports the symptoms are relieved without any intervention. ED course Vital signs blood pressure 166/113, pulse 83, respirations 16, temperature 98.1, pulse ox 100%, on room air. EKG shows heart rate is 74 bpm rhythm is regular QRS axis is normal, NC interval is normal, QRS interval is normal, QT interval is normal no Q waves, T waves are normal, no ST changes noted normal sinus rhythm with nonspecific ST/T wave changes. Initial lab findings significant for elevated troponin I 126.7, CBC and metabolic panel reassuring, chest x-ray shows pulmonary congestion, CT scan chest and head are negative. Admitting the patient the diagnosis of dizziness and giddiness, essential hypertension, and elevated troponin. Hospital Course: Pt is a 33-year-old male who presented with dizziness. On admission, lab studies showed elevated troponin at 126 -> 118 -> 113. EKG showed normal sinus rhythm. We admitted pt to rule out ACS. NM tress test was abnormal. It showed questionable region of reversible uptake involving junction of inferior and lateral mcdermott near the base, may represent a small region of ischemia or artifact. Small fixed defect involving the anterior wall mid to apical segments suggestive of prior infarct or scarring. We consulted Cardiology. Pt received heparin drip and Cardiology did cardiac cath on 04/30/23 which showed normal coronary arteries. Echo showed EF of 58%.The toll line mechanic recommended CT Angiography for further evaluation of the left main artery. Pt was advised to follow up with Cardiology within 1 week. He also complained of back pain and we did Lumbar x-ray which showed disc thinning around L4 - L5 and L5 to S1. The pain improved after he took motrin. He decided to follow up with his PCP in clinic for possible MRI of the lumbar spine if the pain worsened. Chest x-ray showed pulmonary congestion, CT scan chest and head were negative. We continued home med for other chronic medical problems. Pt was advised to lose weight. He was in NAD prior to discharge. Vital Signs/Physical Exam: Temp Pulse Resp BP Pulse Ox 97.2 F 69 16 124/63 97 05/01/23 12:00 05/01/23 12:00 05/01/23 12:00 05/01/23 12:00 05/01/23 12:00 Laboratory Data at Discharge: WBC 6.70 thou/uL (4.3-10.9) 05/01/23 06:17 Hgb 14.5 g/dL (13.6-17.9) 05/01/23 06:17 Hct 43.3 % (39.6-49.0) 05/01/23 06:17 Plt Count 292 thou/uL (152-406) 05/01/23 06:17 PT 12.4 SECONDS (9.5-12.5) 04/29/23 15:17 INR 1.13 04/29/23 15:17 APTT 56.4 SECONDS (24.3-36.9) H 04/30/23 14:00 Sodium 138 mEq/L (136-145) 05/01/23 06:17 Potassium 4.0 mEq/L (3.5-5.1) 05/01/23 06:17 BUN 12 mg/dL (7-18) 05/01/23 06:17 Creatinine 0.90 mg/dL (0.70-1.30) 05/01/23 06:17 Glucose 88 mg/dL (74-106) 05/01/23 06:17 Total Bilirubin 0.3 mg/dL (0.2-1.0) 04/26/23 08:00 AST 25 U/L (15-37) 04/26/23 08:00 ALT 51 U/L (16-61) 04/26/23 08:00 Alkaline Phosphatase 103 U/L (45-117) 04/26/23 08:00 Triglycerides 107 mg/dL (<150) 04/27/23 01:34 Cholesterol 227 mg/dL (<200) H 04/27/23 01:34 HDL Cholesterol 39 mg/dL (40-60) L 04/27/23 01:34 Cholesterol/HDL Ratio 5.82 04/27/23 01:34 Home Medications: Aspirin [Aspirin EC] 81 mg PO DAILY 90 Days #90 05/01/23 Atorvastatin Calcium [Lipitor] 40 mg PO BEDTIME 90 Days #90 tab 05/01/23 New Medications: Aspirin [Aspirin EC] 81 mg PO DAILY 90 Days #90 Atorvastatin Calcium [Lipitor] 40 mg PO BEDTIME 90 Days #90 tab Physician Discharge Instructions: Continue ad nicolás activity as tolerated. take Aspirin and atorvastatin as prescribed. Follow up with Dr. Burciaga in clinic within 1 - 2 weeks for the the CT angiography.
== END 2023-05-01 14:14 | disposition home or self-care (01) | DRG 149 ==
LOC: ER 06:51 → ERHOLD 14:01 → UNDOADMOB 14:01 → 2ND 22:09 → OBSVTOIN 04-28 15:36
PROVIDERS: ADMIT Hospitalist; ATTEND Hospitalist
PROC: 4A023N7 Measurement of Cardiac Sampling and Pressure, Left Heart, Percutaneous Approach (ICD-10-PCS; principal; 2023-04-30)
PROC: B2111ZZ Fluoroscopy of Multiple Coronary Arteries using Low Osmolar Contrast (ICD-10-PCS; 2023-04-30)
DX: R42 Dizziness and giddiness (principal); Z68.42 Body mass index [BMI] 45.0-49.9, adult; E66.01 Morbid (severe) obesity due to excess calories; I10 Essential (primary) hypertension; E78.5 Hyperlipidemia, unspecified; R77.8 Other specified abnormalities of plasma proteins; Z79.82 Long term (current) use of aspirin; Z86.16 Personal history of COVID-19; Z79.899 Other long term (current) drug therapy
CPT/HCPCS: 36415; 70450; 71045; 71275; 72100; 74177; 76937; 78452; 80048; 80061; 80076; 81003; 83036; 83880; 84439; 84443; 84484; 85025; 85610; 85730; 93005; 93017; 93306; 93458; 99152; 99153; 99285; A9500; C1893; G0378; J0461; J1644; J1650; J2001; J2250; J2270; J2785; J3010; J7040; Q9966; Q9967